=== PATIENT | female | born 1995 | race Caucasian/White ===

== ENCOUNTER → 2023-08-23 | Emergency (ER) | payer BC ==
[~2023-08-23] VITALS: Ht 165.1 cm; Wt 98.0 kg
[~2023-08-23] MED LIST: LORA-268 PO
[2023-08-23 10:31] VITALS: BP 149/92; PULSE 84; RESP 18; TEMP 97.8; O2SAT 98
== END | disposition home or self-care (01) ==
LOC: ER 09:47
DX: R45.1 Restlessness and agitation (principal); F31.9 Bipolar disorder, unspecified
CPT/HCPCS: 99283